=== PATIENT | female | born 1970 | race African-American/Black ===

== ENCOUNTER 2021-10-11 07:09 | Day surgery (SDC) | payer BC ==
[2021-10-09 16:39] VITALS: BMI 36.2
[2021-10-11 07:49] VITALS: TEMP 98.2
[2021-10-11 10:46] VITALS: BP 135/85
== END 2021-10-11 10:25 | disposition home or self-care (01) ==
LOC: RAD 07:09
PROVIDERS: ATTEND Neurological Surgery
PROC: B01B1ZZ Fluoroscopy of Spinal Cord using Low Osmolar Contrast (ICD-10-PCS; principal; 2021-10-11)
DX: M47.812 Spondylosis without myelopathy or radiculopathy, cervical region (principal); M25.78 Osteophyte, vertebrae; M50.221 Other cervical disc displacement at C4-C5 level; M48.02 Spinal stenosis, cervical region; M43.16 Spondylolisthesis, lumbar region; M48.03 Spinal stenosis, cervicothoracic region; Z88.0 Allergy status to penicillin; Z88.5 Allergy status to narcotic agent; Z91.048 Other nonmedicinal substance allergy status
CPT/HCPCS: 62302; 72126